=== PATIENT | female | born 1960 | race Caucasian/White ===

== ENCOUNTER 2023-09-22 10:54 | Emergency (ER) | payer MEDICAID ==
[2023-09-22] MEDS: Ketorolac 30 MG/ML SDV IM ONE (14:32)
== END 2023-09-22 14:51 | disposition home or self-care (01) ==
LOC: JP.ED 10:54
DX: K08.409 Partial loss of teeth, unspecified cause, unspecified class (principal); K12.2 Cellulitis and abscess of mouth; I10 Essential (primary) hypertension; F17.210 Nicotine dependence, cigarettes, uncomplicated; Z90.710 Acquired absence of both cervix and uterus; Z79.899 Other long term (current) drug therapy; Z88.0 Allergy status to penicillin; Z91.040 Latex allergy status; Z91.018 Allergy to other foods; Z91.013 Allergy to seafood
CPT/HCPCS: 96372; 99283; J1885

== ENCOUNTER 2024-07-06 13:17 | Emergency (ER) | payer MEDICAID | END 2024-07-06 15:24 | disposition home or self-care (01) | LOC: JP.ED 13:17 | DX: J06.9 Acute upper respiratory infection, unspecified (principal); R42 Dizziness and giddiness | CPT/HCPCS: 99283 ==

== ENCOUNTER 2024-08-21 14:21 | Emergency (ER) | payer MEDICAID ==
[2024-08-21] MEDS: Aspirin 81 MG Tab.Chew PO ONE (15:01)
[2024-08-21 15:07] LABS: BASOPHILS ABSOLUTE AUTO 0.07 K/uL (0.00-0.10); BASOPHILS PERCENT AUTO 1.1 % (0.1-1.3); EOSINOPHILS ABSOLUTE AUTO 0.14 K/uL (0.00-0.40); EOSINOPHILS PERCENT AUTO 2.1 % (0.0-5.4); HEMATOCRIT 39.2 % (34.3-46.0); IMMATURE GRAN PERCENT AUTO 0.3 % (0.0-0.7); LYMPHOCYTES ABSOLUTE AUTO 1.46 K/uL (0.8-3.3); LYMPHOCYTES PERCENT AUTO 22.4 % (11.4-47.7); MEAN CORPUSCULAR HEMOGLOBIN 30.4 pg (31.6-35.5); MEAN CORPUSCULAR HGB CONC 33.2 g/dL (31.6-35.5); MEAN CORPUSCULAR VOLUME 91.6 fL (81.4-99.0); MONOCYTES ABSOLUTE AUTO 0.54 K/uL (0.20-0.90); MONOCYTES PERCENT AUTO 8.3 % (3.3-12.6); NEUTROPHILS ABSOLUTE AUTO 4.29 K/uL (1.0-7.6); NEUTROPHILS PERCENT AUTO 65.8 % (40.0-78.1); PLATELET COUNT,PLT 278 K/uL (130-375); RED BLOOD CELL COUNT 4.28 M/uL (3.77-5.24); WHITE BLOOD CELL COUNT,WBC 6.5 K/uL (3.2-11.0)
[2024-08-21 15:10] LABS: IMMATURE GRAN ABSOLUTE AUTO 0.02 K/uL (0.00-0.23)
[2024-08-21] MEDS: Alum Hydrox/Mag Hydrox/Simeth 15 ML, Lidocaine 2% 15 ML PO ONE (15:11)
[2024-08-21 15:34] LABS: C-REACTIVE PROTEIN < 0.50 mg/dL (<0.50); TROPONIN I HIGH SENSITIVITY < 4.0 pg/mL (<=60.3)
[2024-08-21 15:52] LABS: A/G RATIO 1.2 (1.2-2.2); ALANINE AMINOTRANSFERASE,ALT 20 U/L (12-78); ALBUMIN 3.7 g/dL (3.4-5.0); ALKALINE PHOSPHATASE 76 U/L (46-116); ANION GAP 11.3 mmol/L (5.0-14.0); ASPARTATE AMNIOTRANSFERASE,AST 15 U/L (15-37); BILIRUBIN TOTAL 0.9 mg/dL (0.2-1.0); BLOOD UREA NITROGEN,BUN 8 mg/dL (7-18); CALCIUM 9.1 mg/dL (8.5-10.1); CARBON DIOXIDE,CO2 28 mmol/L (21-32); CHLORIDE,CL 104 mmol/L (100-108); CREATININE 0.7 mg/dL (0.6-1.0); EST CRCL DRUG DOSING (CG) 71.96 mL/min; ESTIMATED GFR 98 mL/min (>60); GLUCOSE RANDOM 110 mg/dL (74-106); POTASSIUM,K 4.3 mmol/L (3.6-5.2); PROTEIN TOTAL,TP 6.7 g/dL (6.4-8.2); SODIUM,NA 139 mmol/L (140-148)
== END 2024-08-21 16:26 | disposition home or self-care (01) ==
LOC: JP.ED 14:21
DX: K44.9 Diaphragmatic hernia without obstruction or gangrene (principal); I10 Essential (primary) hypertension; F17.210 Nicotine dependence, cigarettes, uncomplicated; Z91.040 Latex allergy status; Z88.0 Allergy status to penicillin; Z91.018 Allergy to other foods; Z91.013 Allergy to seafood; Z79.899 Other long term (current) drug therapy
CPT/HCPCS: 36415; 71046; 80053; 84484; 85025; 86140; 93005; 99285; A9270; 93010; 99284